=== PATIENT | female | born 1960 | race Caucasian/White ===

== ENCOUNTER 2023-11-17 12:12 | Observation (INO) ==
[2023-11-17] MEDS ORDERED: IOPAMIDOL 100 ML BOTTLE IV ONE (12:13)
[2023-11-17] MEDS: 0.9 % SODIUM CHLORIDE 1,000 ML IV ONE ×2 (12:21→13:02)
[2023-11-17] MEDS: diphenhydrAMINE 50 MG/ML VIAL IV ONE (12:48)
[2023-11-17] MEDS: METOCLOPRAMIDE 10 MG/2 ML VIAL IV ONE (12:50)
[2023-11-17] MEDS: MECLIZINE 25 MG TABLET PO ONE ×2 (12:55→15:58)
[2023-11-17 13:20] LABS: Basophils # (Auto) 0.03 K/mcL (0.00-0.30); Basophils % (Auto) 0.5 % (0.0-2.0); Eosinophils # (Auto) 0.01 K/mcL (0.00-0.70); Eosinophils % (Auto) 0.2 % (0.0-7.0); Hematocrit 41.3 % (34.1-44.9); Hemoglobin 12.9 g/dL (11.2-15.7); Lymphocytes # (Auto) 0.71 K/mcL (1.50-4.80); Lymphocytes % (Auto) 12.3 % (15.5-49.0); Mean Cell Volume 82.8 fL (80.0-100.0); Mean Corpuscular HGB Conc 31.2 g/dL (31.0-36.0); Mean Platelet Volume 12.1 fL (8.8-12.5); Monocytes % (Auto) 5.2 % (1.0-12.0); Neutrophils % (Auto) 81.5 % (38.0-78.0); Platelet Count 277 K/mcL (140-440); RBC 4.99 M/mcL (3.59-5.38); Red Cell Distribution Width 15.5 % (11.5-14.5); WBC 5.8 K/mcL (4.5-11.0)
[2023-11-17 13:32] LABS: Alcohol, Blood < 10.1 mg/dL; Alcohol,Blood < 0.010 gm/dL (<0.010)
[2023-11-17 13:34] LABS: ALT/SGPT 12 U/L (<40); AST/SGOT 19 U/L (<32); Albumin 3.9 gm/dL (3.2-5.2); Albumin/Globulin Ratio 1.1 (1.0-2.3); Alkaline Phosphatase 70 U/L (39-117); Bilirubin,Total 0.4 mg/dL (0.1-1.0); Blood Urea Nitrogen 15 mg/dL (8-23); Carbon Dioxide 24 mmol/L (22-30); Chloride 104 mmol/L (96-108); Globulin 3.4 gm/dL (2.2-3.7); Glomerular Filtration Rate 78; Glucose 134 mg/dL (70-105); Potassium 3.7 mmol/L (3.3-5.1); Sodium 139 mmol/L (133-145)
[2023-11-17 13:50] LABS: HCG,Serum Negative
[2023-11-17] MEDS: ONDANSETRON 4 MG/2 ML VIAL IV ONE (15:47)
[2023-11-17] MEDS: DEXAMETHASONE 10 MG/ML VIAL IV ONE (15:59)
[2023-11-17] MEDS: LACTATED RINGERS 1,000 ML IV ONE (17:27)
[2023-11-17 17:38] LABS: Appearance,Urine CLEAR (Clear); Bilirubin,Urine Negative (Negative); Color,Urine YELLOW; Culture Indicated,Urine No; Glucose,Urine (UA) Negative (Negative); Ketones,Urine Negative (Negative); Leukocyte Esterase,Urine 75 /uL (Negative); Mucus,Urine FEW /hpf; Nitrate,Urine Negative (Negative); Protein,Urine Negative (Negative); Specific Gravity,Urine 1.028 (1.000-1.035); Urine Blood Negative (Negative); Urine Hyaline Cast 1 /lph (0-2); Urine RBC < 1 /hpf (0-3); Urine Squamous Epithelial Cell 7 /hpf (0-4); Urine WBC 6 /hpf (0-4); Urobilinogen,Urine Negative
[2023-11-17] MEDS ORDERED: PROMETHAZINE 25 MG TABLET PO PRN (17:55)
[2023-11-17] MEDS ORDERED: POLYETHYLENE GLYCOL 3350 17 GM PACKET PO PRN (17:55)
[2023-11-17] MEDS ORDERED: ONDANSETRON 4 MG/2 ML VIAL IV PRN (17:55)
[2023-11-17] MEDS ORDERED: SENNOSIDES 1 TABLET PO PRN (17:55)
[2023-11-17] MEDS ORDERED: MECLIZINE 25 MG TABLET PO PRN (17:55)
[2023-11-17] MEDS ORDERED: MAG HYDROX/AL HYDROX/SIMETH 30 ML ORAL.SUSP PO PRN (17:55)
[2023-11-17] MEDS ORDERED: ACETAMINOPHEN 325 MG TABLET PO PRN (17:55)
[2023-11-17 17:57] LABS: Amphetamine Screen,Urine None detected; Barbiturate Screen,Urine None detected; Benzodiazepines Screen,Urine None detected; Cannabinoid Screen,Urine None detected; Cocaine Screen,Urine None detected; Fentanyl, Urine Screen None Detected; Opiate Screen,Urine None detected; Oxycodone, Urine Screen None detected; Phencyclidine Screen,Urine None detected
[2023-11-17] MEDS: FAMOTIDINE 20 MG TABLET PO SCH (20:28)
[2023-11-17] MEDS: 0.9 % SODIUM CHLORIDE 10 ML SYRINGE IV SCH (20:28)
[2023-11-17] MEDS: LACTATED RINGERS 1,000 ML IV SCH (20:28)
[2023-11-17] MEDS: ENOXAPARIN 40 MG/0.4 ML SYRINGE SQ SCH (20:28)
[2023-11-18 06:46] LABS: Basophils # (Auto) 0.02 K/mcL (0.00-0.30); Basophils % (Auto) 0.5 % (0.0-2.0); Eosinophils # (Auto) 0.06 K/mcL (0.00-0.70); Eosinophils % (Auto) 1.4 % (0.0-7.0); Hematocrit 38.7 % (34.1-44.9); Hemoglobin 11.7 g/dL (11.2-15.7); Lymphocytes # (Auto) 1.27 K/mcL (1.50-4.80); Lymphocytes % (Auto) 29.5 % (15.5-49.0); Mean Cell Volume 84.5 fL (80.0-100.0); Mean Corpuscular HGB Conc 30.2 g/dL (31.0-36.0); Mean Platelet Volume 12.5 fL (8.8-12.5); Monocytes # (Auto) 0.47 K/mcL (0.10-0.90); Monocytes % (Auto) 10.9 % (1.0-12.0); Neutrophils % (Auto) 57.5 % (38.0-78.0); Platelet Count 239 K/mcL (140-440); RBC 4.58 M/mcL (3.59-5.38); Red Cell Distribution Width 15.9 % (11.5-14.5); WBC 4.3 K/mcL (4.5-11.0)
[2023-11-18 06:55] LABS: Blood Urea Nitrogen 10 mg/dL (8-23); Calcium 8.8 mg/dL (8.6-10.4); Carbon Dioxide 25 mmol/L (22-30); Chloride 110 mmol/L (96-108); Glomerular Filtration Rate 78; Glucose 82 mg/dL (70-105); Sodium 142 mmol/L (133-145)
[2023-11-18] MEDS: FEXOFENADINE 180 MG TABLET PO SCH (09:19)
[2023-11-18] MEDS: FLUTICASONE PROPIONATE SPRAY.NAS NS SCH (09:24)
[2023-11-19 06:40] LABS: Basophils # (Auto) 0.02 K/mcL (0.00-0.30); Basophils % (Auto) 0.6 % (0.0-2.0); Eosinophils # (Auto) 0.09 K/mcL (0.00-0.70); Eosinophils % (Auto) 2.5 % (0.0-7.0); Hemoglobin 11.8 g/dL (11.2-15.7); Lymphocytes # (Auto) 1.24 K/mcL (1.50-4.80); Lymphocytes % (Auto) 34.2 % (15.5-49.0); Mean Cell Volume 83.9 fL (80.0-100.0); Mean Corpuscular HGB Conc 31.1 g/dL (31.0-36.0); Mean Platelet Volume 11.9 fL (8.8-12.5); Monocytes # (Auto) 0.32 K/mcL (0.10-0.90); Monocytes % (Auto) 8.8 % (1.0-12.0); Neutrophils % (Auto) 53.6 % (38.0-78.0); Platelet Count 252 K/mcL (140-440); RBC 4.53 M/mcL (3.59-5.38); Red Cell Distribution Width 15.8 % (11.5-14.5); WBC 3.6 K/mcL (4.5-11.0)
[2023-11-19 07:26] LABS: Blood Urea Nitrogen 10 mg/dL (8-23); Calcium 8.8 mg/dL (8.6-10.4); Carbon Dioxide 23 mmol/L (22-30); Chloride 109 mmol/L (96-108); Glomerular Filtration Rate 68; Glucose 84 mg/dL (70-105); Potassium 4.2 mmol/L (3.3-5.1); Sodium 142 mmol/L (133-145)
== END 2023-11-19 09:57 | disposition home or self-care (01) ==
LOC: ED 12:12 → ICU 12:12 → MEDSUR 11-19 01:20
PROVIDERS: ADMIT Student in an Organized Health Care Education/Training Program; ATTEND Student in an Organized Health Care Education/Training Program